=== PATIENT | female | born 1980 | race Caucasian/White ===

== ENCOUNTER 2016-08-07 11:42 | Emergency (ER) | payer BC, OTHER ==
[~2016-08-07] VITALS: Ht 162.6 cm; Wt 68.0 kg
[2016-08-07] MEDS ORDERED: FAMO-63 PO (12:03)
[2016-08-07] MEDS ORDERED: CETI10TA22 PO (12:03)
--- NOTE | 2016-08-07 12:38 | PHYS DOC ---
Past Medical History Past Medical History: GERD, Seizure, Other Additional Past Medical Histor: CHRONIC UTICARIA Past Surgical History: Other Additional Past Surgical Histo: LEFT KNEE, RIGHT SHOULDER Additional Information: 1/2 ppd Alcohol Use: Occasionally Drug Use: None Adult General Chief Complaint Chief Complaint: SEIZURE HPI HPI Patient is a 36 year old female who presents with complaint of headache and generalized weakness after suffering a seizure episode. Patient states that she was walking on a sidewalk when she started to noticed lightheadedness and left- sided twitching. Patient states that the next thing that she remembers was being in an ambulance. Patient states that she has had similar symptoms in the past and was diagnosed with seizure disorder. Patient states that she followed up with a neurologist and had EEG testing 2 years ago which did not epileptiform seizure activity and patient states that she was not started on seizure medication but was recommended to follow-up. Patient states that she has not followed up within the last year with any physicians. The patient reportedly was found by a bystander who called EMS. On EMSs arrival, the patient was noted to display continued altered mental status consistent with postictal state. Upon arrival to the emergency department the patient had returned to baseline mental status. Patient states that she is having pain along the left side of her head and states that she has a large hematoma on that side. Patient denies any other symptoms currently. Patient states that her symptoms before and after seizure episode are consistent with her prior episodes. Review of Systems Review of Systems Constitutional: Generalized fatigue [] Eyes: Denies change in visual acuity, redness, or eye pain [] HENT: Denies nasal congestion or sore throat [] Respiratory: Denies cough or shortness of breath [] Cardiovascular: Denies chest pain or edema [] GI: Denies abdominal pain, nausea, vomiting, bloody stools or diarrhea [] : Denies dysuria or hematuria [] Musculoskeletal: Denies back pain or joint pain [] Integument: Denies rash or skin lesions [] Neurologic: Headache, denies focal weakness or sensory changes [] Current Medications Current Medications Current Medications Medications (Trade) Dose Ordered Sig/Alfred Start Time Stop Time Status Last Admin Dose Admin Acetaminophen/ Hydrocodone Bitart (Lortab 5/325) 1 tab 1X ONCE 08/07/16 14:15 08/07/16 14:16 Fentanyl Citrate (Fentanyl 2ml Vial) 50 mcg 1X ONCE 08/07/16 12:45 08/07/16 12:46 DC 08/07/16 12:38 50 MCG Levetiracetam (Keppra) 500 mg 1X STAT 08/07/16 14:06 08/07/16 14:08 DC Ondansetron HCl (Zofran) 4 mg 1X ONCE 08/07/16 12:45 08/07/16 12:46 DC 08/07/16 12:39 4 MG Sodium Chloride (Iv Sodium Chloride 0.9% 1000ml Bag) 1,000 ml @ 1,000 mls/hr 1X ONCE 08/07/16 12:45 08/07/16 13:44 DC 08/07/16 12:39 1,000 MLS/HR Allergies Allergies Allergies Coded Allergies Type Severity Reaction Last Updated Verified naproxen Allergy Severe Anaphylaxis 08/07/16 No Physical Exam Physical Exam Constitutional: Alert, afebrile, appears in mild discomfort. [] HENT: Normocephalic, large left occipital hematoma, bilateral external ears normal, oropharynx moist, no oral exudates, nose normal. [] Eyes: PERRLA, EOMI, conjunctiva normal, no discharge. [] Neck: Normal range of motion, no tenderness, supple, no stridor. [] Cardiovascular: Tachycardia, regular rhythm, no murmur [] Lungs & Thorax: Bilateral breath sounds clear to auscultation [] Abdomen: Bowel sounds normal, soft, no tenderness, no masses, no pulsatile masses. [] Skin: Warm, dry, no erythema, no rash. [] Back: No tenderness, no CVA tenderness. [] Extremities: No tenderness, no cyanosis, no clubbing, ROM intact, no edema. [] Neurologic: Alert and oriented X 3, normal motor function, normal sensory function, no focal deficits noted. [] Current Patient Data Vital Signs Vital Signs Date Time Temp Pulse Resp B/P Pulse Ox O2 Delivery O2 Flow Rate FiO2 08/07/16 14:00 90 20 121/76 99 Room Air 08/07/16 11:42 98.5 98.5 Lab Values Laboratory Tests Test 08/07/16 12:00 White Blood Count 7.4x10^3/uL (4.0-11.0) Red Blood Count 4.58x10^6/uL (3.50-5.40) Hemoglobin 14.2g/dL (12.0-15.5) Hematocrit 43.3% (36.0-47.0) Mean Corpuscular Volume 95fL (79-100) Mean Corpuscular Hemoglobin 31pg (25-35) Mean Corpuscular Hemoglobin Concent 33g/dL (31-37) Red Cell Distribution Width 14.8% (11.5-14.5) H Platelet Count 234x10^3/uL (140-400) Neutrophils (%) (Auto) 57% (31-73) Lymphocytes (%) (Auto) 33% (24-48) Monocytes (%) (Auto) 9% (0-9) Eosinophils (%) (Auto) 1% (0-3) Basophils (%) (Auto) 1% (0-3) Neutrophils # (Auto) 4.2x10^3uL (1.8-7.7) Lymphocytes # (Auto) 2.4x10^3/uL (1.0-4.8) Monocytes # (Auto) 0.7x10^3/uL (0.0-1.1) Eosinophils # (Auto) 0.1x10^3/uL (0.0-0.7) Basophils # (Auto) 0.0x10^3/uL (0.0-0.2) Prothrombin Time 12.8SEC (11.7-14.0) Prothrombin Time INR 1.0 (0.8-1.1) PTT 29SEC (24-38) Urine Collection Type Unknown Urine Color Yellow Urine Clarity Clear Urine pH 5.0 Urine Specific [place] 1.020 Urine Protein 30mg/dL (NEG-TRACE) Urine Glucose (UA) Negativemg/dL (NEG) Urine Ketones (Stick) Negativemg/dL (NEG) Urine Blood Negative (NEG) Urine Nitrite Negative (NEG) Urine Bilirubin Negative (NEG) Urine Urobilinogen Dipstick 0.2mg/dL (0.2 mg/dL) Urine Leukocyte Esterase Negative (NEG) Urine RBC 0/HPF (0-2) Urine WBC 0/HPF (0-4) Urine Squamous Epithelial Cells Occ/LPF Urine Bacteria 0/HPF (0-FEW) Sodium Level 141mmol/L (136-145) Potassium Level 3.6mmol/L (3.5-5.1) Chloride Level 102mmol/L (98-107) Carbon Dioxide Level 24mmol/L (21-32) Anion Gap 15 (6-14) H Blood Urea Nitrogen 12mg/dL (7-20) Creatinine 0.8mg/dL (0.6-1.0) Estimated GFR (Cockcroft-Gault) 82.1 BUN/Creatinine Ratio 15 (6-20) Glucose Level 80mg/dL (70-99) Calcium Level 9.6mg/dL (8.5-10.1) Total Bilirubin 0.7mg/dL (0.2-1.0) Aspartate Amino Transferase (AST) 16U/L (15-37) Alanine Aminotransferase (ALT) 26U/L (14-59) Alkaline Phosphatase 62U/L (46-116) Total Protein 7.7g/dL (6.4-8.2) Albumin 4.4g/dL (3.4-5.0) Albumin/Globulin Ratio 1.3 (1.0-1.7) Urine Opiates Screen Neg (NEG) Urine Methadone Screen Neg (NEG) Urine Barbiturates Neg (NEG) Urine Phencyclidine Screen Neg (NEG) Urine Amphetamine/Methamphetamine Neg (NEG) Urine Benzodiazepines Screen Neg (NEG) Urine Cocaine Screen Neg (NEG) Urine Cannabinoids Screen Neg (NEG) Urine Ethyl Alcohol Neg (NEG) Laboratory Tests 08/07/16 12:00 Laboratory Tests 08/07/16 12:00 EKG EKG Interpreted by me: Heart rate 107, tachycardia, normal rhythm, normal intervals , normal axis, no acute ST/T-wave abnormalities present [] Radiology/Procedures Radiology/Procedures [facility] [address] [place] [address] IMAGING REPORT Signed PATIENT: TAJ VERGARA ACCOUNT: [id number] : 1980 LOCATION: ER AGE: 36 SEX: F EXAM STATUS: REG ER ORD. PHYSICIAN: NAIF NEAL MD REASON: seizure, left occipital hematoma, loss of consciousness PROCEDURE: CT HEAD WO CONTRAST CT of the head without contrast, 08/07/2016: History: Fall after seizure Comparison is made to a study from 11/14/2013. The ventricles are within normal limits in size. There is no shift of the midline structures. There is no evidence of acute intracranial hemorrhage or mass effect. There is a large scalp hematoma in the left posterior parietal region. No underlying fracture is identified. IMPRESSION: No acute intracranial abnormality is detected. PQRS Compliance Statement: One or more of the following individualized dose reduction techniques were utilized for this examination: 1. Automated exposure control 2. Adjustment of the mA and/or kV according to patient size 3. Use of iterative reconstruction technique DICTATED and SIGNED BY: IRMA LOCKHART MD DATE: 08/07/16 1365 CC: NAIF NEAL MD; NO PCP ~ [] Course & Med Decision Making Course & Med Decision Making Pertinent Labs and Imaging studies reviewed. (See chart for details) Patient was given IV fluids, Zofran, fentanyl. The patient's head CT was negative. I consult to Dr. Desouza of neurology who agreed that patient should be started on Keppra twice a day with recommended follow-up in one week with Dr. Swift. Patient was given seizure precautions and instructed not to operate any heavy machinery until cleared by neurology. Advised return to the emergency department for any worsening symptoms. Patient voiced understanding and in agreement with treatment plan. Dragon Disclaimer Dragon Disclaimer This electronic medical record was generated, in whole or in part, using a voice recognition dictation system. Departure Departure Impression: Primary Impression: Seizure Additional Impressions: Scalp hematoma Closed head injury Disposition: 01 HOME, SELF-CARE Condition: IMPROVED Referrals: BROCK RICO (PCP) Patient Instructions: Head Injury, Adult, Scalp Hematoma, Seizure, Adult Additional Instructions: Follow-up with Dr. Swift in one to 2 weeks. Do not operate any heavy machinery until you have been cleared by your neurologist. Continue on the medication prescribed for your seizures until instructed to stop by your neurologist. Return to the emergency department for any worsening symptoms. Scripts Hydrocodone/Apap 5-325 ([place] 5-325 Tablet)1 Each Tablet1 Tab PO Q4-6HRS PRN PAIN #20 TAB Prov:NAIF NEAL MD 08/07/16 Levetiracetam (Keppra)500 Mg Tablet1 Tab PO BID #60 TAB Ref 5 Prov:NAIF NEAL MD 08/07/16 Problem Qualifiers Additional Impressions: Scalp hematoma Encounter type: initial encounter Qualified Code: S00.03XA - Contusion of scalp, initial encounter Closed head injury Encounter type: initial encounter Qualified Code: S09.90XA - Unspecified injury of head, initial encounter NAIF NEAL MD Aug 07, 2016 12:38
[2016-08-07] MEDS ORDERED: IV NORMAL SALINE 1000ML BAG 1,000 ML IV ONE (12:45)
[2016-08-07] MEDS ORDERED: ONDANSETRON PF 4 MG/2 ML VIAL. IV ONE (12:45)
[2016-08-07] MEDS ORDERED: FENTANYL PF 100 MCG/2 ML VIAL. IV ONE (12:45)
[2016-08-07 12:48] LABS: BASO % 1 % (0-3); EOS % 1 % (0-3); HEMATOCRIT 43.3 % (36.0-47.0); HEMOGLOBIN 14.2 g/dL (12.0-15.5); LYMPH # 2.4 x10^3/uL (1.0-4.8); LYMPH % 33 % (24-48); MEAN CORPUSCULAR HEMOGLOBIN 31 pg (25-35); MEAN CORPUSCULAR HGB CONC 33 g/dL (31-37); MEAN CORPUSCULAR VOLUME 95 fL (79-100); MONO % 9 % (0-9); NEUT % 57 % (31-73); PLATELET COUNT 234 x10^3/uL (140-400); RED BLOOD COUNT 4.58 x10^6/uL (3.50-5.40); RED CELL DISTRIBUTION WIDTH 14.8 % (11.5-14.5); WHITE BLOOD COUNT 7.4 x10^3/uL (4.0-11.0)
[2016-08-07 12:54] LABS: BILIRUBIN,URINE NEGATIVE (NEG); GLUCOSE,URINE NEGATIVE (NEG); NITRITE,URINE NEGATIVE (NEG); PROTEIN,URINE 30 mg/dL (NEG-TRACE); UROBILINOGEN,URINE 0.2 mg/dL (0.2 mg/dL)
[2016-08-07 12:59] LABS: BARBITURATES NEG (NEG); BENZODIAZEPINES NEG (NEG); CANNABINOIDS NEG (NEG); COCAINE NEG (NEG); METHADONE NEG (NEG); OPIATES NEG (NEG); PHENCYCLIDINE NEG (NEG)
[2016-08-07 13:00] LABS: ETHANOL, URINE NEG (NEG)
[2016-08-07 13:01] LABS: CALCIUM 9.6 mg/dL (8.5-10.1); CREATININE 0.8 mg/dL (0.6-1.0); GFR 82.1; POTASSIUM 3.6 mmol/L (3.5-5.1)
[2016-08-07 13:08] LABS: ALBUMIN 4.4 g/dL (3.4-5.0); ALBUMIN/GLOBULIN RATIO 1.3 (1.0-1.7); BACTERIA,URINE 0 /HPF (0-FEW); RBC,URINE 0 /HPF (0-2); SQUAMOUS EPITHELIAL CELL,UR OCC /LPF; TOTAL BILIRUBIN 0.7 mg/dL (0.2-1.0); TOTAL PROTEIN 7.7 g/dL (6.4-8.2); WBC,URINE 0 /HPF (0-4)
--- NOTE | 2016-08-07 13:11 | RAD ---
CT of the head without contrast, 08/07/2016: History: Fall after seizure Comparison is made to a study from 11/14/2013. The ventricles are within normal limits in size. There is no shift of the midline structures. There is no evidence of acute intracranial hemorrhage or mass effect. There is a large scalp hematoma in the left posterior parietal region. No underlying fracture is identified. IMPRESSION: No acute intracranial abnormality is detected. PQRS Compliance Statement: One or more of the following individualized dose reduction techniques were utilized for this examination: 1. Automated exposure control 2. Adjustment of the mA and/or kV according to patient size 3. Use of iterative reconstruction technique
[2016-08-07 13:17] LABS: PROTHROMBIN TIME PATIENT 12.8 SEC (11.7-14.0)
--- NOTE | 2016-08-07 13:48 | EKG ---
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
[2016-08-07] MEDS ORDERED: LEVETIRACETAM 500 MG TABLET. PO STA (14:06)
[2016-08-07] MEDS ORDERED: HYDROCODONE/APAP 5/325MG TABLET. PO ONE (14:15)
[2016-08-07] MEDS ORDERED: LEVE500T56 PO (14:17)
[2016-08-07] MEDS ORDERED: HYDR-971 PO (14:17)
[2016-08-07 14:27] VITALS: BP 117/75
== END 2016-08-07 14:47 | disposition home or self-care (01) ==
LOC: ER 11:42
DX: S00.03XA Contusion of scalp, initial encounter (principal); G40.909 Epilepsy, unspecified, not intractable, without status epilepticus; R00.0 Tachycardia, unspecified; R53.1 Weakness; R41.82 Altered mental status, unspecified; K21.9 Gastro-esophageal reflux disease without esophagitis; F17.200 Nicotine dependence, unspecified, uncomplicated; Z88.8 Allergy status to other drugs, medicaments and biological substances; X58.XXXA Exposure to other specified factors, initial encounter; Y93.01 Activity, walking, marching and hiking; Y92.480 Sidewalk as the place of occurrence of the external cause; Y99.8 Other external cause status
CPT/HCPCS: 36415; 70450; 80053; 80305; 80320; 81001; 81025; 85027; 85610; 85730; 93005; 96361; 96374; 96375; 99285; J2405; J3010; J7030; G0481

== ENCOUNTER → 2018-05-23 | Outpatient (CLI) | payer OTHER ==
[~2018-05-23] MED LIST: CETI10TA22 PO; FAMO-63 PO; HYDR-3164 PO; LEVE500T56 PO
[2018-05-23 17:09] LABS: BARBITURATES NEG (NEG); BENZODIAZEPINES NEG (NEG); CANNABINOIDS NEG (NEG); COCAINE NEG (NEG); METHADONE NEG (NEG); OPIATES NEG (NEG); PHENCYCLIDINE NEG (NEG)
[2018-05-23 17:10] LABS: ALBUMIN 4.3 g/dL (3.4-5.0); ALBUMIN/GLOBULIN RATIO 1.5 (1.0-1.7); CALCIUM 9.3 mg/dL (8.5-10.1); CREATININE 0.7 mg/dL (0.6-1.0); GFR 95.2; POTASSIUM 3.5 mmol/L (3.5-5.1); TOTAL BILIRUBIN 1.2 mg/dL (0.2-1.0); TOTAL PROTEIN 7.2 g/dL (6.4-8.2)
[2018-05-23 17:19] LABS: AMPHETAMINE/METHAMPHETAMINE NEG (NEG)
== END | disposition home or self-care (01) ==
LOC: LAB 16:30
PROVIDERS: ATTEND Psychiatry & Neurology Neurology
DX: R56.9 Unspecified convulsions (principal); R55 Syncope and collapse
CPT/HCPCS: 36415; 80053; 80307; 82607

== ENCOUNTER → 2018-05-26 | Outpatient (CLI) | payer OTHER ==
--- NOTE | 2018-05-26 15:46 | EKG ---
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
== END | disposition home or self-care (01) ==
LOC: EKG 15:29
PROVIDERS: ATTEND Psychiatry & Neurology Neurology
DX: R56.9 Unspecified convulsions (principal); R55 Syncope and collapse
CPT/HCPCS: 93005

== ENCOUNTER → 2018-06-15 | Outpatient (CLI) | payer OTHER ==
--- NOTE | 2018-06-15 16:50 | KCIC ---
EXAM: Cervical spine MRI without contrast. HISTORY: Numbness and paresthesia. TECHNIQUE: Multiplanar, multisequence magnetic resonance imaging of the cervical spine was performed without contrast. COMPARISON: Radiographs dated 06/27/2014. FINDINGS: There is no significant listhesis. The vertebral bodies are normal in height and the disc spaces are preserved. No suspicious osseous lesion is seen. No spinal cord lesion is seen. The posterior fossa and skull base are unremarkable. At C2-C3, there is no stenosis. At C3-C4, there is a disc bulge and bilateral posterior lateral predominant endplate osteophytosis. There is mild right foraminal stenosis. At C4-C5, there is a disc bulge and posterior lateral predominant endplate osteophytosis. There is mild bilateral foraminal stenosis. At C5-C6, there is a right posterior lateral predominant disc bulge and endplate osteophytosis. There is moderate right foraminal stenosis. At C6-C7, there is a left posterior lateral predominant disc bulge and endplate osteophytosis. There is no stenosis. IMPRESSION: Multilevel degenerative changes of the cervical spine, described in detail above. This results in foraminal narrowing at the aforementioned levels. Electronically signed by: Stefanie Herrera MD (06/15/2018 4:47 PM) [facility]-KC[facility]
== END | disposition home or self-care (01) ==
LOC: KCIC MRI 15:20
PROVIDERS: ATTEND Psychiatry & Neurology Neurology
DX: M47.892 Other spondylosis, cervical region (principal); M48.02 Spinal stenosis, cervical region
CPT/HCPCS: 72141

== ENCOUNTER → 2018-07-08 | Outpatient (CLI) | payer OTHER ==
--- NOTE | 2018-07-13 20:25 | EEG ---
DATE OF SERVICE: 07/08/2018 EEG NUMBER: [id number] OBJECTIVE: This is a 38-year-old female patient with convulsion-like episodes. EEG was requested to help rule out seizure. METHODS: Twenty electrodes were applied according to the international 10-20 electrode placement system. EKG monitoring, hyperventilation, intermittent photic stimulation, monopolar and bipolar montages are routinely utilized. The record was obtained on a digital system with video monitoring. FINDINGS: 1. Background: The patient was recorded in the awake, drowsy, and sleep states. The overall background amplitude is 10-20 microvolts. A posterior dominant rhythm of 8 Hz is observed with superimposed fast activity in the Beta frequency throughout the entire recording. 2. Abnormalities: No specific epileptiform discharge or electrographic seizure is seen. No focal or diffuse slowing. 3. Activation: Hyperventilation was performed with fair efforts and normal response. Intermittent photic stimulation was performed with photic driving. Photoparoxysmal response noted. IMPRESSION: This EEG is a borderline study for the awake, drowsy, and sleep states. There is a superimposed fast activity in the Beta frequency throughout the entire recording. Photoparoxysmal response noted. No focal, lateralizing, specific epileptiform discharge or electrographic seizure is seen. EBONIE COPPOLA MD DR: STEFANIE/tico JOB#: [id number] / [id number] ANA CRISTINA
== END | disposition home or self-care (01) ==
LOC: RT 10:36
PROVIDERS: ATTEND Psychiatry & Neurology Neurology
DX: R56.9 Unspecified convulsions (principal)
CPT/HCPCS: 95816

== ENCOUNTER 2019-04-19 19:51 | Emergency (ER) | payer SELFPAY ==
[~2019-04-19] VITALS: Ht 154.9 cm; Wt 70.3 kg
[~2019-04-19 19:51] MED LIST changes: +AMOX1TAB61 PO; +HYDR-2759 PO
[2019-04-19 20:33] VITALS: BP 125/80
--- NOTE | 2019-04-19 21:09 | PHYS DOC ---
Past Medical History Past Medical History: GERD, Seizure, Other Additional Past Medical Histor: CHRONIC UTICARIA Past Surgical History: Other Additional Past Surgical Histo: LEFT KNEE, RIGHT SHOULDER Alcohol Use: Occasionally Drug Use: None Adult General Chief Complaint Chief Complaint: SUTURE/STAPLE REMOVAL HPI HPI Patient is a 38 year old female who presents for staple removal after having numerous dog bites and lacerations to right wrist and hand after breaking up a fight between her 2 pet dogs 11 days ago. Pet vaccinations were up-to-date. From last visit: On exam, patient has a 4 cm jagged laceration and bite imprint contusion to right proximal flexor wrist with exposed adipose tissue. There is no deep tendon or vessel involvement. Bleeding is controlled. Animal first noted to be present. Patient has multiple puncture wounds to the base of right thumb, index middle finger palm and hand physician assistant primary care with animal bite. Bleeding is controlled. There is no joint involvement. No other acute symptoms or complaints.[] Review of Systems Review of Systems Constitutional: Denies fever or chills [] Eyes: Denies change in visual acuity, redness, or eye pain [] HENT: Denies nasal congestion or sore throat [] Musculoskeletal: Denies back pain or joint pain [] Integument: Reports needs jefe removed. Complete systems were reviewed and found to be within normal limits, except as documented in this note. Allergies Allergies Allergies Coded Allergies Type Severity Reaction Last Updated Verified naproxen Allergy Severe Anaphylaxis 08/07/16 No Physical Exam Physical Exam Constitutional: Well developed, well nourished, no acute distress, non-toxic appearance. [] HENT: Normocephalic, atraumatic, bilateral external ears normal, oropharynx moist, no oral exudates, nose normal. [] Eyes: PERRLA, EOMI, conjunctiva normal, no discharge. [] Skin: Patient has healed laceration to the forearm. Numbness to pinky. Neurologic: Alert and oriented X 3 Psychologic: Affect normal, judgement normal, mood normal. [] Current Patient Data Vital Signs Vital Signs Date Time Temp Pulse Resp B/P (MAP) Pulse Ox O2 Delivery O2 Flow Rate FiO2 04/19/19 20:33 98.6 71 16 125/80 (95) 100 Room Air 98.6 EKG EKG [] Radiology/Procedures Radiology/Procedures [] Course & Med Decision Making Course & Med Decision Making Pertinent Labs and Imaging studies reviewed. (See chart for details) Jefe removed by nursing. Will refer to Hand Specialist due to numbness in pinky. Does not have any signs and symptoms of infection. Dragon Disclaimer Dragon Disclaimer This electronic medical record was generated, in whole or in part, using a voice recognition dictation system. Departure Departure Impression: Primary Impression: Encounter for staple removal Disposition: HOME, SELF-CARE Condition: STABLE Referrals: EBONIE COPPOLA MD (PCP) Patient Instructions: Staple Removal, Care After Additional Instructions: Thank you for visiting [facility]. We appreciate you trusting us with your care. If any additional problems come up don't hesitate to return to visit us. Please follow up with your primary care provider so they can plan additional care if needed and know about the problem that you had. If symptoms worsen come back to the Emergency Department. Any concerning symptoms that start such as chest pain, shortness of air, weakness or numbness on one side of the body, running high fevers or any other concerning symptoms return to the ER. Please follow up with Hand Surgery: Dr. Yoel Underwood [address] [place] [address] JERICHO CARMICHAEL APRN Apr 19, 2019 21:09
== END 2019-04-19 21:16 | disposition home or self-care (01) ==
LOC: ER 19:51
DX: S61.511D Laceration without foreign body of right wrist, subsequent encounter (principal); K21.9 Gastro-esophageal reflux disease without esophagitis; L50.8 Other urticaria; Z98.890 Other specified postprocedural states; W54.0XXD Bitten by dog, subsequent encounter
CPT/HCPCS: 99281